=== PATIENT | male | born 1975 | race Native Hawaiian/Other Pacific Islander ===

== ENCOUNTER → 2022-08-23 | Outpatient (CLI) | payer OTHER ==
--- NOTE | 2022-08-24 05:34 | MR ---
EXAMINATION TYPE: MR shoulder LT wo con DATE OF EXAM: 08/23/2022 COMPARISON: Outside left shoulder x-ray August 01, 2022 HISTORY: Left shoulder pain due to slip and fall. TECHNIQUE: Multiplanar, multisequence imaging of the left shoulder is performed without contrast. FINDINGS: Rotator Cuff: Increased signal distal supraspinatus tendon with focal inferior articular surface dayton uring 9 mm AP diameter sagittal image 5 x 6 mm transversely coronal image 11. Infraspinatus tendon is intact. Subscapularis tendon intact. Rotator cuff muscle bulk preserved. Acromioclavicular Joint: Widening of the acromioclavicular joint. Minimal spurring. Underlying fat pl ane maintained. Mild capsular hypertrophy. Glenohumeral Joint: No significant spurring. No significant effusion. Labrum: The labrum appears grossly intact given limitation of non-arthrogram study. Biceps Tendon: The long head of biceps is in normal location within bicipital groove. Bone marrow signal: Some subchondral cystic change superior-lateral humeral head. Other: No additional significant abnormality is appreciated. IMPRESSION: Tendinopathy and focal significant tearing of the distal supraspinatus tendon.
== END | disposition home or self-care (01) ==
LOC: RADMRIMAIN 13:28
PROVIDERS: ATTEND Orthopaedic Surgery
DX: M75.102 Unspecified rotator cuff tear or rupture of left shoulder, not specified as traumatic (principal)

== ENCOUNTER → 2022-10-01 | Outpatient (CLI) | payer OTHER ==
[2022-10-01 23:48] LABS: Basophils # (A) 0.04 X 10*3/uL (0.00-0.10); Basophils % (A) 0.6 %; Eosinophils # (A) 0.37 X 10*3/uL (0.04-0.35); Eosinophils % (A) 5.6 %; HCT 42.9 % (39.6-50.0); HGB 14.2 g/dL (13.0-17.0); Immature Grans, Automated 0.2 %; Lymphocytes # (A) 2.65 X 10*3/uL (0.90-5.00); Lymphocytes % (A) 39.8 %; MCHC 33.1 g/dL (32.0-37.0); MCV 99.8 fL (80.0-97.0); Mean Platelet Volume 9.9 fL (9.5-12.2); Monocytes # (A) 0.49 X 10*3/uL (0.20-1.00); Monocytes % (A) 7.4 %; NRBC Per 100 WBC 0 /100 WBCS (0.0-0.0); Neutrophils # (A) 3.09 X 10*3/uL (1.80-7.70); Neutrophils % (A) 46.4 %; Platelet Count 287 X 10*3/uL (140-440); RDW 12.2 % (11.5-14.5); WBC 6.65 X 10*3/uL (4.50-10.00)
[2022-10-02 00:06] LABS: Anion Gap 9.2 mmol/L (10.00-18.00); Carbon Dioxide 26.8 mmol/L (20.0-27.5); Potassium 4.4 mmol/L (3.5-5.5)
== END | disposition home or self-care (01) ==
LOC: LABPAT 16:05
PROVIDERS: ATTEND Orthopaedic Surgery
DX: Z01.818 Encounter for other preprocedural examination (principal); M75.42 Impingement syndrome of left shoulder
CPT/HCPCS: 36415; 80051; 85025

== ENCOUNTER 2022-10-17 06:12 | Day surgery (SDC) | payer OTHER ==
[2022-10-16 09:02] VITALS: BMI 21.2
--- NOTE | 2022-10-16 13:24 | HP ---
HISTORY AND PHYSICAL DATE OF SURGERY6: 10/17/2022. HISTORY: Abdullahi Wilkerson is a 47-year-old gentleman seen with progressive left shoulder pain. We discussed options for treatment. He elected to proceed with left shoulder arthroscopy. Consent regarding the procedure was obtained. PAST MEDICAL HISTORY: Depression. PAST SURGICAL HISTORY: Noncontributory. DAILY MEDICATIONS: NSAIDs. ALLERGIES: None. SOCIAL HISTORY: Denies tobacco use. PHYSICAL EVALUATION OF LEFT SHOULDER: Flexion is 120 degrees, abduction is 110 degrees, external rotation is 35 degrees with pain and weakness. Tenderness along the anterior lateral acromion rotator cuff insertion site. Impingement positive at 90 degrees. Drop-arm sign is positive. Distal neurovascular exam is intact. RADIOGRAPHS: Radiographs of the left shoulder revealed a type 2 acromion. MRI left shoulder revealed a rotator cuff tendon tear and acromioclavicular joint osteoarthritis. IMPRESSION: Left shoulder impingement with rotator cuff tear. PLAN: Left shoulder arthroscopy with subacromial decompression, arthroscopic rotator cuff repair and debridement. MMODL / IJN: [id number] /
[2022-10-17] MEDS ORDERED: DEXAMETHASONE SOD PHOSPHATE 4 MG/ML 1 ML VIAL IV ONE (06:13)
[2022-10-17] MEDS ORDERED: MIDAZOLAM 2 MG/2 ML VIAL IV PRN (06:13)
[2022-10-17] MEDS ORDERED: ONDANSETRON 4 MG/2 ML VIAL IVP ONE (06:13)
[2022-10-17] MEDS ORDERED: LACTATED RINGERS 1,000 ML IV SCH (06:13)
[2022-10-17] MEDS ORDERED: SCOPOLAMINE 1 MG/72 HR PATCH TRANSDERM ONE (06:13)
[2022-10-17] MEDS ORDERED: LIDOCAINE 1% (10MG/ML) FOR IV START INTRADERMA ONE (06:38)
[2022-10-17] MEDS ORDERED: HYDROmorphone 0.5 MG/0.5 ML SYRINGE IVP PRN (07:00)
[2022-10-17] MEDS ORDERED: GLYCOPYRROLATE 0.2 MG/ML 2 ML VIAL ONE (07:21)
[2022-10-17] MEDS ORDERED: fentaNYL (PF) 50 MCG/ML 2 ML AMP ONE (07:21)
[2022-10-17] MEDS ORDERED: LIDOCAINE 2% INJ 20 MG/ML (2 ML VIAL) ONE (07:21)
[2022-10-17] MEDS ORDERED: PROPOFOL 10 MG/ML 20 ML VIAL IV ONE (07:21)
[2022-10-17] MEDS ORDERED: SUCCINYLCHOLINE CHLORIDE 200 MG/10 ML VIAL IV ONE (07:21)
[2022-10-17] MEDS ORDERED: ROPIVACAINE 5 MG/ML 30 ML VIAL ONE (07:21)
[2022-10-17] MEDS ORDERED: MIDAZOLAM 2 MG/2 ML VIAL ONE (07:21)
--- NOTE | 2022-10-17 08:16 | P.ANPRN ---
Procedure Note - Anesthesia - Nerve Block Performed Left Interscalene Single Time Out Performed: Yes ([id number]) Date of Procedure: 10/17/22 Procedure Start Time: 06:53 Procedure Stop Time: 06:57 Location of Patient: PreOp Indication: Acute Post-Operative Pain, Requested by Surgeon Specifically requested for management of pain by DrShauna: Cruzito Horne Sedation Type: Sedate with meaningful contact maintained Preparation: Sterile Prep Position: Supine Catheter: None Needle Types: Pajunk Needle Gauge: 21 Ultrasound used to visualize needle placement: Yes Ultrasound used to observe medication spread: Yes Injectate: 0.5% Ropivacaine (see comment for volume) (30cc) Blood Aspirated: No Pain Paresthesia on Injection Noted: No Resistance on Injection: Normal Image Stored and Saved: Yes Events: Uneventful and Well Tolerated
[2022-10-17] MEDS ORDERED: LACTATED RINGERS 1,000 ML IV ONE (08:36)
--- NOTE | 2022-10-17 08:57 | P.OP ---
Date of Procedure: 10/17/22 Preoperative Diagnosis: Left shoulder impingement Postoperative Diagnosis: 1. Left shoulder rotator cuff tear 2. Left shoulder impingement Procedure(s) Performed: 1. Left shoulder arthroscopic rotator cuff repair 2. Left shoulder arthroscopic subacromial decompression Implants: 14.75 Arthrex swivel lock anchor Anesthesia: GETA, regional (Interscalene block) Surgeon: Cruzito Horne Tutor #1: Jefferson Perrin Estimated Blood Loss (ml): 10 Pathology: none sent Condition: stable Disposition: PACU Indications for Procedure: 47-year-old patient seen with progressive left shoulder pain. After having treatment options discussed, he elected to proceed with arthroscopy. Operative Findings: See description of procedure Description of Procedure: Patient underwent an interscalene block by department of anesthesia. The patient was then taken to the operative suite. The patient underwent a general anesthetic by the department of anesthesia. The patient was placed into a lateral position and secured. There was appropriate padding of the bony prominence. Left shoulder was then prepped and draped in normal sterile orthopedic fashion. We placed the extremity in 10 pounds of longitudinal traction. A posterior incision was now made for a posterior working portal site. The trocar and cannula were inserted into the glenohumeral joint. Arthroscopy was initiated. Spinal needle was now inserted anteriorly, to ascertain the anterior working portal site. An incision was now made in that area, a trocar was inserted followed by a probe. There was some mild superficial fraying of the anterior labrum. There were some early grade 1 chondromalacia changes of the humeral head. The biceps was intact. The remainder labrum appeared stable. I debrided that superficial labral tear getting down to stable labral tissue. We again thoroughly probed the labrum and it was found to be stable. Instruments were now removed from glenohumeral joint. Utilizing the posterior working portal site, the trocar and cannula were inserted into the subacromial space. Arthroscopy initiated. I made an incision 2 fingerbreadths lateral to the acromion. I introduced my trocar followed by my ArthroCare ablator. I now began ablating thick subacromial bursal tissue, which exposed the undersurface of the anterior acromion. There was diminished subacromial space. There was a very prominent anterior acromion. A motorized bur was introduced and a subacromial decompression was performed. I also excised some osteophytes off the inferior aspect of the distal clavicle. The AC joint was visualized and noted to be mildly arthritic, I did not think enough toward a Jung procedure. I turned my attention to the rotator cuff tendon. There was a 1.5 cm tear along the distal supraspinatus. I debrided the margins getting down to stable tendon tissue. I abraded the footprint with a motorized bur. With the assistance of Mina NAIK past history everted mattress suture through good bites of rotator cuff tendon. I punched along the footprint area for insertion of anchor. All 6 limbs of suture were passed through the eyelet of a 4.75 Arthrex a lock anchor. I placed the eyelet into the pre-punched hole. I held it in position while Mina NAIK tensioned all 6 limbs of suture and deployed the anchor was good fixation noted. All residual suture limbs were now clipped. We had good compression of the tendon along the entire footprint. Instruments now removed from the portal sites. All portal sites were approximated with nylon suture. Sterile dressings were applied followed by a shoulder sling. Jefferson NAIK assisted in this case. The patient was awakened, transferred to a bed, and taken to recovery in stable condition.
[2022-10-17 09:24] VITALS: TEMP 96.9
[2022-10-17 09:27] VITALS: RESP 16
[2022-10-17 10:10] VITALS: BP 145/89; PULSE 76
== END 2022-10-17 10:37 | disposition home or self-care (01) ==
LOC: OR 06:12
PROVIDERS: ATTEND Orthopaedic Surgery
DX: M75.102 Unspecified rotator cuff tear or rupture of left shoulder, not specified as traumatic (principal); M75.42 Impingement syndrome of left shoulder; G89.18 Other acute postprocedural pain; M25.712 Osteophyte, left shoulder; M19.012 Primary osteoarthritis, left shoulder; F32.A Depression, unspecified; F90.0 Attention-deficit hyperactivity disorder, predominantly inattentive type; Z79.899 Other long term (current) drug therapy
CPT/HCPCS: 64415; 76942; 29827; 29826; C1713; J2250; J0330; J1100; J2405; J0690; J3010; J2795; J2704; J2001